=== PATIENT | female | born 1945 | race Caucasian/White ===

== ENCOUNTER 2020-08-06 21:04 | Inpatient (IN) | payer OTHER ==
[~2020-08-06] VITALS: Ht 152.4 cm; Wt 54.5 kg
[~2020-08-06 21:04] MED LIST: ASPIR 8181 MG PO; ASPIRIN EC81 MG PO; CELEBREX 200MG200 MG PO; CLEOCIN 150MG150 MG PO; CLEOCIN HCL150 MG PO; COZAAR 25MG TAB25 MG PO; DESYREL 50 MG T50 MG PO; ELIQUIS 5 MG TAB5 MG PO; FOSAMAX70 MG PO; GLUCOPHAGE500 MG PO; GLUCOTROL 10 MG10 MG PO; IMDUR ER TAB 3030 MG PO; LASIX20 MG PO; LIPITOR TAB 2020 MG PO; LISINOPRIL10 MG PO; LOPRESSOR 25 MG25 MG PO; NEURONTIN 100100 MG PO; PROTONIX40 MG PO; PROZAC20 MG PO; TRADJENTA5 MG PO; TRICOR145 MG PO; ULTRAM50 MG PO
[2020-08-06 22:23] LABS: HEMOGLOBIN 10.3 gm/dl (12.3-15.3); RED BLOOD COUNT 3.45 M/UL (4.00-5.10)
[2020-08-06 22:47] LABS: BUN/CREATININE RATIO 47 (0-10)
[2020-08-08 03:15] LABS: HEMOGLOBIN 9.4 gm/dl (12.3-15.3); RED BLOOD COUNT 3.14 M/UL (4.00-5.10)
[2020-08-08 03:40] LABS: BUN/CREATININE RATIO 34 (0-10)
[2020-08-08 03:44] LABS: WHITE BLOOD COUNT 7.1 K/UL (4.5-11.0)
[2020-08-09 11:10] LABS: HEMOGLOBIN 9.2 gm/dl (12.3-15.3); RED BLOOD COUNT 3.06 M/UL (4.00-5.10)
[2020-08-09 11:31] LABS: BUN/CREATININE RATIO 38 (0-10)
[2020-08-13 04:44] LABS: HEMOGLOBIN 10.5 gm/dl (12.3-15.3); RED BLOOD COUNT 3.51 M/UL (4.00-5.10); WHITE BLOOD COUNT 8.1 K/UL (4.5-11.0)
[2020-08-13 05:18] LABS: BUN/CREATININE RATIO 28 (0-10)
[2020-08-16] MEDS ORDERED: ULTRAM50 MG PO (11:45)
[2020-08-18 06:24] LABS: BUN/CREATININE RATIO 30 (0-10)
[2020-08-19 03:04] LABS: BUN/CREATININE RATIO 37 (0-10)
[2020-08-20] MEDS ORDERED: SENNA LAX8.6 MG PO (08:24)
== END 2020-08-20 14:58 | DRG 871 ==
LOC: ER1 21:04 → CDU 08-07 02:08 → PROG CARE 08-07 02:08 → M/S 08-17 15:31
PROVIDERS: Emergency Medicine; Internal Medicine; Internal Medicine Infectious Disease; ADMIT Family Medicine
DX: A41.51 Sepsis due to Escherichia coli [E. coli] (principal); I50.23 Acute on chronic systolic (congestive) heart failure; E87.2 Acidosis; N30.00 Acute cystitis without hematuria; I11.0 Hypertensive heart disease with heart failure; I48.91 Unspecified atrial fibrillation; E11.65 Type 2 diabetes mellitus with hyperglycemia; I25.10 Atherosclerotic heart disease of native coronary artery without angina pectoris; E78.5 Hyperlipidemia, unspecified; Z20.822 Contact with and (suspected) exposure to COVID-19; D53.9 Nutritional anemia, unspecified; I27.20 Pulmonary hypertension, unspecified; R53.81 Other malaise; K59.00 Constipation, unspecified; I07.1 Rheumatic tricuspid insufficiency; R29.6 Repeated falls; Z95.5 Presence of coronary angioplasty implant and graft; Z91.81 History of falling; Z79.899 Other long term (current) drug therapy; Z79.82 Long term (current) use of aspirin; Z79.01 Long term (current) use of anticoagulants; Z85.3 Personal history of malignant neoplasm of breast; Z85.828 Personal history of other malignant neoplasm of skin; Z90.49 Acquired absence of other specified parts of digestive tract; Z95.1 Presence of aortocoronary bypass graft; Z90.13 Acquired absence of bilateral breasts and nipples; Z90.710 Acquired absence of both cervix and uterus; Z91.041 Radiographic dye allergy status; Z88.0 Allergy status to penicillin; Z91.013 Allergy to seafood
CPT/HCPCS: 36415; 70450; 71045; 71111; 71250; 72125; 73030; 73522; 80048; 80053; 81001; 82140; 82550; 82553; 82962; 83605; 83690; 83874; 83880; 84484; 85025; 85027; 87077; 87086; 87186; 90471; 90715; 93005; 94760; 96365; 96375; 97110; 97110-GP-CQ; 97116; 97116-GP-CQ; 97162; 97166; 97530; 97530-GP-CQ; 99285; J1940; J1956; J2270; J2405; U0002